=== PATIENT | male | born 1965 | race Two or more races ===

== ENCOUNTER 2025-04-25 20:52 | Emergency (ER) | payer MEDICAID ==
[~2025-04-25] VITALS: Ht 185.4 cm; Wt 85.3 kg
[2025-04-25 21:10] VITALS: TEMP 98
[2025-04-25] MEDS ORDERED: KETOROLAC TROMETHAMINE 15 MG/ML VIAL ONE (21:33)
[2025-04-25] MEDS: IV NS 0.9% 1,000 ML BAG IV ONE (21:45)
[2025-04-25] MEDS: KETOROLAC TROMETHAMINE 15 MG/ML VIAL IV ONE (21:49)
[2025-04-25 22:00] LABS: PLATELET COUNT (AUTO) 237 K/uL (150-450); RED BLOOD CELL COUNT(AUTO) 4.68 MIL/uL (4.5-6.0); RED CELL DISTRIBUTION WIDTH 12.9 % (11.5-15.0); WHITE BLOOD COUNT (AUTO) 16.3 K/uL (4.3-11.0)
[2025-04-25 22:06] LABS: CALCIUM, SERUM 9.1 mg/dL (8.5-10.1); CREATININE 1.1 mg/dL (0.6-1.3); SODIUM SERUM 143.0 mmol/L (136-145); UREA NITROGEN, BLOOD 18.0 mg/dL (7-18)
[2025-04-25] MEDS ORDERED: IBUP-1957 PO (22:50)
[2025-04-25 23:04] VITALS: BP 106/65; O2SAT 98
== END 2025-04-25 23:05 | disposition home or self-care (01) ==
LOC: ER 20:57
DX: S83.91XA Sprain of unspecified site of right knee, initial encounter (principal); R42 Dizziness and giddiness; M25.461 Effusion, right knee; Z79.1 Long term (current) use of non-steroidal anti-inflammatories (NSAID); W01.0XXA Fall on same level from slipping, tripping and stumbling without subsequent striking against object, initial encounter; Y93.89 Activity, other specified; Y92.89 Other specified places as the place of occurrence of the external cause; Y99.8 Other external cause status
CPT/HCPCS: 99285; 96374; 96361; 93005; 73564; 85025; 80048; 36415; J1885; J7030